=== PATIENT | female | born 1975 | race Caucasian/White ===

== ENCOUNTER 2019-10-23 08:05 | Outpatient (CLI) | payer OTHER, SELFPAY ==
--- NOTE | 2019-10-23 09:31 | MM_ITS ---
WS: [id number] LEFT DIGITAL MAMMOGRAPHY WITH CAD CLINICAL INFORMATION: 6 MO F/U LT ABNORMAL MAMMOGRAM COMPARISON: TECHNIQUE: 4 views of the left breast were obtained. FINDINGS: The left breast is composed of heterogeneous fibroglandular density tissue, which can limit the detec tion of small underlying mass lesions. Previous described asymmetric density upper outer left breast is similar in appearance to 2019. No ne w mammographic abnormalities. Ultrasound is pending. ULTRASOUND BREAST LEFT TECHNIQUE: Ultrasound left breast focused area of concern. CLINICAL INFORMATION: 6 MO F/U LT ABNORMAL MAMMOGRAM COMPARISON: FINDINGS: Ultrasound left breast 2:00 and 5:00 positions. At the 2:00 position again seen is the small hypoechoic lesion Measuring 5.1 x 4.4 x 5.4 mm which is unchanged in appearance. This has a benign appearance. At the 5:00 position is a small hypoechoic cystic lesion measuring 3.3 x 2.2 x 4.2 mm also unchanged in appearance. This merges with an adjacent duct and has a benign appearance. Stability is reassuring and recommend return to annual screening mammography. MM/[id number] IMPRESSION: BI-RADS: 2-Benign FOLLOW UP: 1 Year Follow-up Recommend return to annual screening mammography.
== END 2019-10-23 08:06 | disposition home or self-care (01) ==
PROVIDERS: Family Provider Family Medicine; PCP Family Medicine; Visit Provider Nurse Practitioner Women's Health
DX: N63.21 Unspecified lump in the left breast, upper outer quadrant (principal); R92.8 Other abnormal and inconclusive findings on diagnostic imaging of breast
CPT/HCPCS: 76642; 77065

== ENCOUNTER 2020-01-27 11:20 | Outpatient (RCR) | payer OTHER, SELFPAY | END 2020-01-29 23:59 | disposition home or self-care (01) | LOC: SPT 11:20 | PROVIDERS: Family Provider Family Medicine; PCP Family Medicine; Referring Provider Family Medicine; Visit Provider Family Medicine | DX: M75.50 Bursitis of unspecified shoulder (principal); M75.80 Other shoulder lesions, unspecified shoulder | CPT/HCPCS: 97161; 97530 ==

== ENCOUNTER 2020-01-30 06:00 | Outpatient (RCR) | payer OTHER, SELFPAY | END 2020-02-29 23:59 | disposition home or self-care (01) | LOC: SPT 06:00 | PROVIDERS: Family Provider Family Medicine; PCP Family Medicine; Referring Provider Family Medicine; Visit Provider Family Medicine | DX: M75.50 Bursitis of unspecified shoulder (principal); M75.80 Other shoulder lesions, unspecified shoulder | CPT/HCPCS: 97110 ==

== ENCOUNTER 2020-03-01 06:00 | Outpatient (RCR) | payer OTHER, SELFPAY | END 2020-03-30 23:59 | disposition home or self-care (01) | LOC: SPT 06:00 | PROVIDERS: PCP Family Medicine; Visit Provider Family Medicine | DX: M75.50 Bursitis of unspecified shoulder (principal); M75.80 Other shoulder lesions, unspecified shoulder | CPT/HCPCS: 97110 ==

== ENCOUNTER 2020-08-12 08:00 | Outpatient (CLI) | payer OTHER, SELFPAY ==
--- NOTE | 2020-08-12 08:30 | MM_ITS ---
WS: [id number] Bilateral screening digital mammogram, 08/12/2020 Clinical Data: screening breast cancer Comparison: 10/23/2019, 04/14/2019, 03/19/2019, 01/31/2010. Findings: The breast parenchymal pattern shows heterogeneous density No spiculated masses or clustered calcific ations are seen. There are no secondary signs of carcinoma. MM/[id number] Impression: 1. Negative bilateral mammogram unchanged. 2. Recommend annual screening mammograms. BIRADS: 1-Negative FOLLOW UP: 1 Year Follow-up The CAD cash checker was used.
== END 2020-08-12 08:01 | disposition home or self-care (01) ==
LOC: RADSHAW 08:02
PROVIDERS: PCP Family Medicine; Visit Provider Nurse Practitioner Women's Health
DX: Z12.31 Encounter for screening mammogram for malignant neoplasm of breast (principal)
CPT/HCPCS: 77067

== ENCOUNTER → 2022-02-09 14:28 | Outpatient (BNVA) | payer BC, SELFPAY | PROVIDERS: PCP Family Medicine; Visit Provider Nurse Practitioner Women's Health | DX: Z01.419 Encounter for gynecological examination (general) (routine) without abnormal findings (principal); N92.1 Excessive and frequent menstruation with irregular cycle; Z97.5 Presence of (intrauterine) contraceptive device | CPT/HCPCS: 84439; 84443; 87624 ==

== ENCOUNTER → 2022-05-10 09:55 | Outpatient (BNVA) | payer BC, SELFPAY | PROVIDERS: PCP Electrodiagnostic Medicine; Visit Provider Internal Medicine | DX: M25.50 Pain in unspecified joint (principal); R21 Rash and other nonspecific skin eruption; M45.0 Ankylosing spondylitis of multiple sites in spine; L40.9 Psoriasis, unspecified; L40.50 Arthropathic psoriasis, unspecified; M70.60 Trochanteric bursitis, unspecified hip | CPT/HCPCS: 36415; 72100; 72202; 73120; 73522; 80053; 82306; 83516; 85025; 85651; 86140; 86160; 86162; 86200; 86235; 86255; 86376; 86431; 86480; 86704; 86803; 86812; 87340 ==

== ENCOUNTER 2022-11-06 09:33 | Outpatient (CLI) | payer BC, SELFPAY ==
[2022-11-06 10:24] LABS: Basophils % 0.6 %; Eosinophils # 0.1 10^3/uL (0.0-0.8); Eosinophils % 1.4 %; Hematocrit 43.2 % (37.0-47.0); Hemoglobin 14.3 g/dL (11.5-15.3); Lymphocytes # 1.9 10^3/uL (0.8-4.8); Mean Corpuscular HGB Conc 33.1 g/dL (30.0-36.0); Mean Corpuscular Hemoglobin 30.6 pg (28.0-34.0); Mean Corpuscular Volume 92.3 fl (81-99); Mean Platelet Volume 9.9 fL (7.4-10.4); Monocytes # 0.4 10^3/uL (0.2-0.9); Monocytes % 6.8 %; Neutrophils % 52.8 %; Nucleated Red Blood Cells % 0 %; Platelet Count 315 10^3/cmm (130-400); Red Blood Count 4.68 10^6/uL (4.1-5.3); White Blood Count 5.1 10^3/uL (4.0-10.0)
[2022-11-06 10:32] LABS: Erythrocyte Sedimentation Rate < 1 mm/hr (0-15)
[2022-11-06 10:47] LABS: Alanine Aminotransferase 13 U/L (0-33); Albumin Level 4.2 g/dL (3.5-5.2); Alkaline Phosphatase 52 U/L (35-105); Anion Gap 10.8 (5-19); Aspartate Amino Transferase 14 U/L (0-32); Blood Urea Nitrogen 9 mg/dL (6-20); Calcium 8.5 mg/dL (8.5-10.5); Carbon Dioxide 27 mmol/L (22-29); Chloride 102 mmol/L (98-107); Globulin 2.5 g/dL (1.3-4.6); Glomerular Filtration Rate 107.6 mL/min (90-130); Glucose 90 mg/dL (65-115); Osmolality Calculated 280 mOsm/kg (285-295); Potassium 3.8 mmol/L (3.5-5.1); Sodium 136 mmol/L (136-145); Total Bilirubin 0.8 mg/dL (0.15-1.2); Total Protein 6.7 g/dL (6.6-8.7)
== END 2022-11-06 09:34 | disposition home or self-care (01) ==
LOC: LAB 09:37
PROVIDERS: PCP Electrodiagnostic Medicine; Visit Provider Internal Medicine
DX: M25.50 Pain in unspecified joint (principal); M70.60 Trochanteric bursitis, unspecified hip; R21 Rash and other nonspecific skin eruption; R76.8 Other specified abnormal immunological findings in serum
CPT/HCPCS: 36415; 80053; 85025; 85651; 86140

== ENCOUNTER → 2022-11-23 13:58 | Outpatient (BNVA) | payer BC, SELFPAY | PROVIDERS: PCP Electrodiagnostic Medicine; Visit Provider Anesthesiology Pain Medicine | DX: M16.9 Osteoarthritis of hip, unspecified (principal); M25.559 Pain in unspecified hip | CPT/HCPCS: 77002 ==

== ENCOUNTER → 2023-02-05 10:17 | Outpatient (BNVA) | payer BC, SELFPAY | PROVIDERS: PCP Electrodiagnostic Medicine; Visit Provider Internal Medicine | DX: M06.9 Rheumatoid arthritis, unspecified (principal); M25.50 Pain in unspecified joint; R21 Rash and other nonspecific skin eruption; R76.8 Other specified abnormal immunological findings in serum; M70.60 Trochanteric bursitis, unspecified hip; Y93.9 Activity, unspecified | CPT/HCPCS: 36415; 80053; 85025; 85651; 86140 ==

== ENCOUNTER → 2024-11-18 12:09 | Outpatient (BNVA) | payer BC, SELFPAY | PROVIDERS: PCP Electrodiagnostic Medicine; Visit Provider Nurse Practitioner Women's Health | DX: R53.83 Other fatigue (principal); R41.89 Other symptoms and signs involving cognitive functions and awareness; N91.5 Oligomenorrhea, unspecified | CPT/HCPCS: 82306; 82607; 82670; 82728; 82746; 83001; 83540; 84439; 84443; 85025 ==

== ENCOUNTER → 2025-04-22 10:49 | Outpatient (BNVA) | payer BC, SELFPAY | PROVIDERS: PCP Electrodiagnostic Medicine; Visit Provider Nurse Practitioner Women's Health | DX: N95.1 Menopausal and female climacteric states (principal) | CPT/HCPCS: 82670 ==

== ENCOUNTER → 2025-07-17 08:20 | Outpatient (BNVA) | payer BC, SELFPAY | PROVIDERS: PCP Electrodiagnostic Medicine; Visit Provider Nurse Practitioner Women's Health | DX: Z79.890 Hormone replacement therapy (principal) | CPT/HCPCS: 84270; 84402; 84403 ==

== ENCOUNTER → 2025-08-31 08:54 | Outpatient (BNVA) | payer BC, SELFPAY | PROVIDERS: PCP Electrodiagnostic Medicine; Visit Provider Nurse Practitioner Women's Health | DX: N95.1 Menopausal and female climacteric states (principal); R39.9 Unspecified symptoms and signs involving the genitourinary system | CPT/HCPCS: 82670; 84270; 84403 ==